=== PATIENT | male | born 1975 | race Caucasian/White ===

== ENCOUNTER 2023-03-31 11:01 | Emergency (ER) | payer MEDICAID ==
[~2023-03-31] VITALS: Ht 177.8 cm; Wt 89.0 kg
[2023-03-31 11:10] VITALS: O2SAT 99
[2023-03-31] MEDS ORDERED: IBUPROFEN 800MG TABLET PO ONE (12:30)
[2023-03-31] MEDS ORDERED: ACETAMINOPHEN 325MG TABLET PO ONE (12:30)
[2023-03-31] MEDS ORDERED: IBUPROFEN 400MG TABLET PO SCH (12:45)
[2023-03-31 16:03] VITALS: BP 129/84; PULSE 77; RESP 18; TEMP 97.9
== END 2023-03-31 16:48 | disposition home or self-care (01) ==
LOC: ER 11:01
DX: R51.9 Headache, unspecified (principal); Z91.030 Bee allergy status; Z88.1 Allergy status to other antibiotic agents; Z98.890 Other specified postprocedural states
CPT/HCPCS: 99283